=== PATIENT | male | born 1980 | race Caucasian/White ===

== ENCOUNTER → 2024-12-31 11:10 | Outpatient (BNVA) | payer SELFPAY | PROVIDERS: Visit Provider Nurse Practitioner | DX: R52 Pain, unspecified (principal); W57.XXXA Bitten or stung by nonvenomous insect and other nonvenomous arthropods, initial encounter; X58.XXXA Exposure to other specified factors, initial encounter | CPT/HCPCS: 86618; 86666; 86757 ==